=== PATIENT | female | born 1995 | race Caucasian/White ===

== ENCOUNTER 2018-07-03 01:11 | Emergency (ER) | payer OTHER | END 2018-07-03 05:31 | disposition home or self-care (01) | LOC: JER 01:11 ==

== ENCOUNTER 2018-07-14 00:48 | Emergency (ER) | payer OTHER ==
[2018-07-14 01:10] VITALS: BP 112/64; PULSE 88; TEMP 98.6; BMI 18.1
--- NOTE | 2018-07-14 01:37 | PDOC ---
Attending Attestation - Resident Resident Name: Braden Pope - ED Attending Attestation I have performed the following: I have examined & evaluated the patient, The case was reviewed & discussed with the resident, I agree w/resident's findings & plan, Exceptions are as noted - HPI HPI: 07/14/18 01:36 H/o spina bifida and chronic UTI Pt presents to the ER for confirmation of She was seen 2 days ago dx as No vaginal bleeding, discharge or pain - Physicial Exam PE: 07/14/18 01:44 GENERAL: Awake, alert, and fully oriented, in no acute distress, walks with crutch ENT: oropharynx clear without exudates. Moist mucosa NECK: Normal ROM, supple LUNGS: No distress, speaks full sentences, clear to auscultation bilaterally HEART: Regular rate and rhythm, normal S1 and S2 ABDOMEN: Soft, LLQ tenderness to palpation, normoactive bowel sounds. No guarding, no rebound. No masses BACK: back surgical scars, L tenderness to ASIS palpation NEUROLOGICAL: Cranial nerves II through XII grossly intact. Normal speech, no focal sensorimotor deficits SKIN: Warm, Dry, normal turgor, no rashes or lesions noted PELVIC: per Dr pope - Medical Decision Making 07/14/18 01:38 Confirmation of Will do: BHCG UA, Uculture TVUS F/u LSAT INSTRUCTOR 07/14/18 03:18 Laboratory Tests 07/14/18 07/14/18 01:32 01:58 Beta HCG, Quant 9590.1 Ur Leukocyte Esterase 3+ H Urine WBC (Auto) 269 Urine RBC (Auto) 6 Ur Epithelial Cells Few Urine Bacteria Moderate US demonstrates IUP, 5 week Will plan to discharge to home Follow up house carpenter helper Return to the ER for any other concerns or complaints UTI treated with Keflex
[2018-07-14 01:48] LABS: URINE APPEARANCE CLOUDY; URINE BILIRUBIN NEGATIVE (<2.0 mg/dL); URINE COLOR LTYELLOW; URINE GLUCOSE (UA) NEGATIVE (NEGATIVE); URINE KETONE NEGATIVE (NEGATIVE); URINE LEUK ESTERASE 3+ (NEGATIVE); URINE NITRITE NEGATIVE (NEGATIVE); URINE PROTEIN NEGATIVE (NEGATIVE)
[2018-07-14 01:52] LABS: EPI CELLS FEW /HPF (FEW); URINE BACTERIA MODERATE /hpf (NONE SEEN); URINE HYALINE CAST 2 /lpf; URINE MUCUS RARE
[2018-07-14 02:14] LABS: HEMATOCRIT 35.8 % (32.4-45.2); HEMOGLOBIN 12.3 GM/dL (10.7-15.3); MCH 28.3 pg (25.7-33.7); MCHC 34.3 g/dl (32.0-36.0); MEAN CELL VOLUME 82.5 fl (80-96); MEAN PLT VOLUME 8.1 fl (7.5-11.1); PLATELET COUNT 241 K/MM3 (134-434); RBC 4.34 M/mm3 (3.60-5.2); RDW 15.6 % (11.6-15.6); WHITE BLOOD COUNT 8.5 K/mm3 (4.0-10.0)
--- NOTE | 2018-07-14 02:21 | PDOC ---
History of Present Illness - General Chief Complaint: ,Possible Stated Complaint: VAGNIAL PAIN Time Seen by Provider: 07/14/18 01:16 History Source: Patient Exam Limitations: No Limitations - History of Present Illness Initial Comments: 07/14/18 02:16 Patient is a 22F with history of spina bifida and chronic utis here today requesting an ultrasound to confirm IUP. Patient states that she was evaluated at another clinic that showed a yolk sac at 5 weeks 3 days. Denies vaginal pain , vaginal bleeding, vaginal discharge. Denies dysuria, frequency, patient self- caths at baseline. Has no OB yet, requesting referral. Past History - Past Medical History Allergies/Adverse Reactions: Allergies Allergy/AdvReac Type Severity Reaction Status Date / Time No Known Allergies Allergy Verified 07/14/18 01:09 Home Medications: Ambulatory Orders Cephalexin Monohydrate [Keflex -] 500 mg PO BID #14 capsule 07/14/18 COPD: No - Surgical History Neurologic Surgery: Yes (Spina bifida repair) - Suicide/Smoking/Psychosocial Hx Smoking History: Never smoked Have you smoked in the past 12 months: No Information on smoking cessation initiated: No Hx Alcohol Use: No Drug/Substance Use Hx: No Review of Systems - Review of Systems Able to Perform ROS?: Yes Comments:: 07/14/18 02:21 GENERAL/CONSTITUTIONAL: No fever or chills. No weakness. HEAD, EYES, EARS, NOSE AND THROAT: No change in vision. No ear pain or discharge. No sore throat. CARDIOVASCULAR: No chest pain or shortness of breath RESPIRATORY: No cough, wheezing, or hemoptysis. GASTROINTESTINAL: No nausea, vomiting, diarrhea or constipation. GENITOURINARY: No dysuria, frequency, or change in urination. MUSCULOSKELETAL: No joint or muscle swelling or pain. No neck or back pain. SKIN: No rash NEUROLOGIC: No headache, vertigo, loss of consciousness, or change in strength/ sensation. ALLERGIC/IMMUNOLOGIC: No hives or skin allergy. *Physical Exam - Vital Signs Last Vital Signs Temp Pulse Resp BP Pulse Ox 98.6 F 88 20 112/64 99 07/14/18 01:09 07/14/18 01:09 07/14/18 01:09 07/14/18 01:09 07/14/18 01:09 - Physical Exam Comments: 07/14/18 02:24 GENERAL: Awake, alert, and fully oriented, in no acute distress HEAD: No signs of trauma, normocephalic, atraumatic EYES: PERRLA, EOMI, sclera anicteric, conjunctiva clear ENT: Auricles normal inspection, hearing grossly normal, nares patent, oropharynx clear without exudates. Moist mucosa NECK: Normal ROM, supple, no lymphadenopathy, JVD, or masses LUNGS: No distress, speaks full sentences, clear to auscultation bilaterally HEART: Regular rate and rhythm, normal S1 and S2, no murmurs, rubs or gallops, peripheral pulses normal and equal bilaterally. ABDOMEN: Soft, nontender, normoactive bowel sounds. No guarding, no rebound. No masses EXTREMITIES: Normal inspection, Normal range of motion, no edema. No clubbing or cyanosis. NEUROLOGICAL: Cranial nerves II through XII grossly intact. Normal speech, normal gait, no focal sensorimotor deficits SKIN: Warm, Dry, normal turgor, no rashes or lesions noted. Moderate Sedation - Procedure Monitoring Vital Signs: Procedure Monitoring Vital Signs Temperature 98.6 F 07/14/18 01:09 Pulse Rate 88 07/14/18 01:09 Respiratory Rate 20 07/14/18 01:09 Blood Pressure 112/64 07/14/18 01:09 O2 Sat by Pulse Oximetry (%) 99 07/14/18 01:09 ED Treatment Course - LABORATORY CBC & Chemistry Diagram: 07/14/18 01:58 07/14/18 01:58 - ADDITIONAL ORDERS Additional order review: Laboratory Results 07/14/18 01:32 Urine Color Ltyellow Urine Appearance Cloudy Urine pH 6.0 Ur Specific [place] 1.021 Urine Protein Negative Urine Glucose (UA) Negative Urine Ketones Negative Urine Blood Negative Urine Nitrite Negative Urine Bilirubin Negative Urine Urobilinogen 2.0 H Ur Leukocyte Esterase 3+ H Urine WBC (Auto) 269 Urine RBC (Auto) 6 Ur Epithelial Cells Few Urine Bacteria Moderate Hyaline Casts 2 Urine Mucus Rare - RADIOLOGY Radiology Studies Ordered: Category Date Time Status TRANSVAGINAL US PREG [US] Stat Ultrasound 07/14/18 01:30 Taken Medical Decision Making - Medical Decision Making 07/14/18 02:25 Patient is 22F requesting US to confirm IUP. Vitals normal and stable. No vaginal bleeding or history suggesting STI. TVUS shows IUP at 5w5d. Will discharge with OB follow up and keflex for UTI. *DC/Admit/Observation/Transfer Diagnosis at time of Disposition: , UTI (urinary tract infection) - Discharge Dispostion Disposition: HOME Condition at time of disposition: Good Decision to Admit order: No - Prescriptions Prescriptions: Cephalexin Monohydrate [Keflex -] 500 mg PO BID #14 capsule - Referrals Referrals: Arturo Werner MD [Staff Physician] - - Patient Instructions Additional Instructions: Please take the keflex as prescribed. Please return if you have increasing pain, vaginal bleeding, fever or any other new, worsening or concerning symptom. Please call the OBGYN below for further follow up tomorrow. - Post Discharge Activity
[2018-07-14] MEDS ORDERED: CEPHALEXIN MONOHYDRATE 500 MG CAPSULE (UD) PO ONE (02:26)
[2018-07-14] MEDS ORDERED: CEPHALEXIN MONOHYDRATE 500 MG CAPSULE (UD) ONE (02:33)
[2018-07-14 03:07] LABS: ALBUMIN 3.8 g/dl (3.4-5.0); ALK PHOS 95 U/L (45-117); ANION GAP 6 MMOL/L (8-16); BILIRUBIN,TOTAL 0.2 mg/dL (0.2-1); BLOOD UREA NITROGEN 13 mg/dL (7-18); CALCIUM 8.5 mg/dL (8.5-10.1); CHLORIDE 108 mmol/L (98-107); CO2 23 mmol/L (21-32); CREATININE 0.5 mg/dL (0.55-1.3); GLUCOSE,RANDOM 87 mg/dL (74-106); POTASSIUM 3.5 mmol/L (3.5-5.1); SGOT/AST 9 U/L (15-37); SGPT/ALT 17 U/L (13-61); SODIUM 137 mmol/L (136-145); TOT PROT 7.5 g/dl (6.4-8.2)
[2018-07-14 03:30] LABS: HCG,QUALITATIVE URINE Positive
== END 2018-07-14 03:26 | disposition home or self-care (01) ==
LOC: JER 00:48
DX: O26.891 Other specified pregnancy related conditions, first trimester (principal); Z3A.01 Less than 8 weeks gestation of pregnancy; Q05.9 Spina bifida, unspecified; N39.0 Urinary tract infection, site not specified
CPT/HCPCS: 36415; 76817-TC; 80053; 81003; 81015; 84702; 84703; 85027; 87086; 87186; 99281-25